=== PATIENT | male | born 1980 | race Caucasian/White ===

== ENCOUNTER 2016-11-02 22:49 | Emergency (ER) | payer OTHER ==
--- NOTE | ~2016-11-02 | CT4 ---
[facility] A Service of [facility] RADIOLOGY TEXT RESULTS PATIENT: EDMUNDO DEUTSCH LOCATION: [facility] : 76 UNIT #: [id number] AGE: [address]: Luis A Ambrose DO SEX: M ORDER DR: [id number] [facility] [address] [place], [place] [address] [id number] E MR#: [id number] #: [id number] NAME: EDMUNDO DEUTSCH : 1980 SEX: M STUDY DATE/TIME: 11/03/2016 00:13 UNIT: [facility] ROOM: STUDY DESCRIPTION: CT Abd and Pelv Wo Cont Attending Physician: Luis A Ambrose D.O. Ordering Physician: Luis A Ambrose D.O. Primary Care Physician: Primary Care Physician No MEDICAL IMAGING REPORT This report is preliminary unless electronic signature is present EXAM CT abdomen and pelvis, 11/03 at 00:13 hours INDICATION Right side flank pain with nausea and vomiting for 3 days. TECHNIQUE Axial noncontrast images were obtained through the abdomen and pelvis. Multiplanar reformats were obtained. This CT exam was performed with one or more of the following radiation dose reduction techniques: automatic exposure control, adjustment of mA and/or kV according to patient size, and iterative reconstruction. COMPARISON No comparison. FINDINGS ABDOMEN: Mild ground-glass in the left lower lobe is likely secondary some to some atelectasis. The gallbladder is unremarkable. The solid organs are normal. No renal or ureteral stones are seen. No hydronephrosis. No adenopathy or free fluid. The unopacified GI tract is normal. PELVIS: The appendix is normal. The remainder of the unopacified GI tract is normal as well. There are no lower ureteral stones. The bladder is normal. There is no free fluid. IMPRESSION 1. No acute findings in the abdomen or pelvis. 2. No renal or ureteral stones. No hydronephrosis. 3. Normal unopacified GI tract, including the appendix. 4. Incidental note is made of some minimal atelectasis in the left lower [facility] A Service of [facility] RADIOLOGY TEXT RESULTS PATIENT: EDMUNDO DEUTSCH LOCATION: [facility] : 76 UNIT #: [id number] AGE: [address]: Luis A Ambrose DO SEX: M ORDER DR: [email or web address]. Dictated by... Velasquez Lombardo Jr., M.D. THIS IS AN ELECTRONICALLY VERIFIED REPORT Velasquez Lombardo Jr., M.D. at 11/03/2016 9:59 PM ELY/jonathan TD: 11/03/2016 10:29 JOB #: [id number] MEDICAL IMAGING REPORT COPY
--- NOTE | ~2016-11-02 | EKG ---
PATIENT: EDMUNDO DEUTSCH UNIT #: [id number] Ventricular Rate: 69 BPM Atrial Rate: 69 BPM P-R Interval: 134 ms QRS Duration: 84 ms Q-T Interval: 400 ms QTC Calculation(Bezet): 428 ms P Dowell: 69 degrees Calculated R Dowell: 47 degrees Calculated T Dowell: 25 degrees Diagnosis Line: Normal sinus rhythm Diagnosis Line: Normal ECG Diagnosis Line: No previous ECGs available Diagnosis Line: Confirmed by DAYNA ALICIA MD ([id number]) on Diagnosis Line: 11/03/2016 4:13:49 PM INTERPRETING MD: MARAL MINOR
--- NOTE | ~2016-11-02 | CR72 ---
[facility] A Service of [facility] RADIOLOGY TEXT RESULTS PATIENT: EDMUNDO DEUTSCH LOCATION: [facility] : 76 UNIT #: [id number] AGE: [address]: Luis A Ambrose DO SEX: M ORDER DR: [id number] [facility] [address] [place], [place] [address] [id number] E MR#: [id number] #: [id number] NAME: EDMUNDO DEUTSCH : 1980 SEX: M STUDY DATE/TIME: 11/02/2016 2251 UNIT: [facility] ROOM: STUDY DESCRIPTION: CR Chest Single View Portable Attending Physician: Luis A Ambrose D.O. Ordering Physician: Luis A Ambrose D.O. Primary Care Physician: No Primary Care Physician MEDICAL IMAGING REPORT This report is preliminary unless electronic signature is present EXAM Portable chest, 11/02 at 2251. INDICATION Shortness of air, cough, and chest pain for the last 3 days. History of smoking. FINDINGS AP portable chest was obtained. No comparison. Cardiac and mediastinal contours are normal. There is mild right infrahilar atelectasis or infiltrate. The lungs are otherwise clear. No pneumothorax. IMPRESSION Mild right infrahilar atelectasis or infiltrate. Otherwise, negative portable chest. Dictated by... Velasquez Lombardo Jr., M.D. THIS IS AN ELECTRONICALLY VERIFIED REPORT Velasquez Lombardo Jr., M.D. at 11/03/2016 9:58 PM ELY/yadira TD: 11/03/2016 10:23 JOB #: [id number] MEDICAL IMAGING REPORT COPY
[2016-11-02 20:26] LABS: BASOPHIL# 0.1 X10e3 (0-0.3); BASOPHIL% 0.7 % (0-2.5); EOSINOPHIL% 0.2 % (0.0-7.0); HEMATOCRIT 46.9 % (38.0-50.0); LYMPHOCYTE# 1.1 X10e3 (1.0-3.5); LYMPHOCYTE% 11.3 % (17.0-45.0); MEAN CORPUSCULAR HEMOGLOBIN 29.2 PG (28-34); MEAN PLATELET VOLUME 8.9 FL (6.5-11.5); MONOCYTE# 1.1 X10e3 (0-1.0); NEUTROPHIL# 7.1 X10e3 (1.5-7.1); NEUTROPHIL% 75.8 % (40-75); PLATELET COUNT 166 X10e3 (140-420); RED BLOOD COUNT 5.46 X10e (3.90-5.60); RED CELL DISTRIBUTION WIDTH 14.3 % (11.0-15.5); WHITE BLOOD COUNT 9.3 X10e3 (4.0-10.5)
[2016-11-02 20:27] LABS: DIFF IND NO
[2016-11-02 20:52] LABS: ALBUMIN SERUM 4.8 g/dL (3.5-5.0); ALKALINE PHOSPHATASE 67 U/L (32-92); ALT (SGPT) 23 U/L (10-40); AMYLASE 30 U/L (0-46); AST (SGOT) 24 U/L (10-42); BILIRUBIN, DIRECT 0.2 mg/dL (0.0-0.2); BILIRUBIN,INDIRECT 0.8 mg/dL (0.0-0.9); BLOOD UREA NITROGEN 18 mg/dL (9-23); CALCIUM SERUM 8.8 mg/dL (8.4-10.2); CARBON DIOXIDE 21 mmol/L (22-31); CHLORIDE 105 mmol/L (100-111); GLOM FILT RATE Estimated ABOVE60 mL/min (>60); GLUCOSE FASTING 84 mg/dL (70-110); LIPASE 16 U/L (22-51); POTASSIUM 3.4 mmol/L (3.5-5.1); PROTEIN TOTAL SERUM 7.9 g/dL (6.0-8.3); SODIUM 135 mmol/L (135-145)
[2016-11-02 21:48] LABS: URINE SOURCE CLEAN CATCH
[2016-11-02 22:12] LABS: URINE APPEARANCE CLEAR; URINE BLOOD NEG (NEG); URINE COLOR DK YELLOW; URINE GLUCOSE NEG (NEG); URINE KETONE 3+ (NEG); URINE LEUKOCYTE ESTERASE NEG (NEG); URINE NITRATE NEG (NEG); URINE PH 5.5 (5-8); URINE PROTEIN TRACE (NEG); URINE SPECIFIC GRAVITY 1.038 (1.003-1.035)
[2016-11-02 22:24] LABS: URINE BILIRUBIN POS (NEG)
[2016-11-02 22:26] LABS: CULTURE INDICATED? NO
[2016-11-02 23:11] LABS: INFLUENZA A NEG (NEG); INFLUENZA B POS (NEG)
[2016-11-02 23:13] LABS: POC - CKMB <1.0 ng/mL (0.0-7.9); POC - TROPONIN <0.05 ng/mL (<=0.05)
[2016-11-03 01:37] LABS: POC - CKMB <1.0 ng/mL (0.0-7.9); POC - TROPONIN <0.05 ng/mL (<=0.05)
== END 2016-11-03 01:36 | disposition home or self-care (01) ==
LOC: CED 22:49
PROVIDERS: Emergency Medicine
DX: R10.9 Unspecified abdominal pain (principal); J18.9 Pneumonia, unspecified organism; J10.1 Influenza due to other identified influenza virus with other respiratory manifestations; F17.200 Nicotine dependence, unspecified, uncomplicated
CPT/HCPCS: 36415; 71010; 74176; 80048; 80076; 81003; 82150; 82553; 83690; 84484; 85025; 87804; 93005; 96374; 96375; 99284; J1885; J2405